=== PATIENT | male | born 2000 | race African-American/Black ===

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

== ENCOUNTER 2022-10-28 19:01 | Emergency (ER) | payer OTHER ==
[2022-10-28] MEDS ORDERED: Morphine 4 MG/ML VIAL ONE (19:20)
[2022-10-28] MEDS ORDERED: Boostrix 0.5 ML (Tdap) VIAL (>/=7 yrs of age) ONE (19:20)
== END 2022-10-28 21:35 | disposition home or self-care (01) ==
LOC: BURERS 19:01
DX: S09.90XA Unspecified injury of head, initial encounter (principal); S16.1XXA Strain of muscle, fascia and tendon at neck level, initial encounter; Z23 Encounter for immunization; W20.8XXA Other cause of strike by thrown, projected or falling object, initial encounter
CPT/HCPCS: 70450; 72125; 90471; 90715; 96372; J2270